=== PATIENT | female | born 1990 | race Caucasian/White ===

== ENCOUNTER 2018-05-29 18:11 | Outpatient (CLI) | payer OTHER ==
[~2018-05-29] VITALS: Ht 172.7 cm; Wt 75.0 kg
[2018-05-29 18:19] VITALS: BP 131/76
== END 2018-05-29 22:00 | disposition home or self-care (01) ==
LOC: LDOP 18:11
PROVIDERS: ATTEND Obstetrics & Gynecology Gynecology
DX: O42.913 Preterm premature rupture of membranes, unspecified as to length of time between rupture and onset of labor, third trimester (principal); Z3A.30 30 weeks gestation of pregnancy
CPT/HCPCS: 59025; 84112; 99201; G0463

== ENCOUNTER 2018-07-26 05:24 | Inpatient (IN) | payer OTHER ==
[~2018-07-26] VITALS: Ht 172.7 cm; Wt 79.5 kg
[2018-07-26] MEDS ORDERED: LACTATED RINGERS 1,000 ML IV SCH ×2 (05:27→05:30)
[2018-07-26] MEDS ORDERED: OXYTOCIN 30U/ 0.9% NaCL 500ML 500 ML IV SCH (05:27)
[2018-07-26] MEDS ORDERED: SODIUM CITRATE/CITRIC ACID 30 ML UDC PO ONE (05:30)
[2018-07-26] MEDS ORDERED: LACTATED RINGERS 1,000 ML IVBOLUS ONE (05:30)
[2018-07-26] MEDS ORDERED: METOCLOPRAMIDE 5 MG/ML, 2ML IV ONE (05:30)
[2018-07-26 05:36] VITALS: BP 123/85
[2018-07-26] MEDS ORDERED: PREN-3 PO (05:41)
[2018-07-26] MEDS ORDERED: NEWBORN KIT ONE (06:10)
[2018-07-26] MEDS ORDERED: SODIUM CITRATE/CITRIC ACID 30 ML UDC ONE (06:10)
[2018-07-26] MEDS ORDERED: OXYTOCIN 30U/ 0.9% NaCL 500ML 500 ML ONE (06:10)
[2018-07-26] MEDS ORDERED: METOCLOPRAMIDE 5 MG/ML, 2ML ONE (06:10)
[2018-07-26 06:11] LABS: BASOPHILS # (AUTO) 0.04 x10^3/uL (0-0.1); BASOPHILS % (AUTO) 0 % (0-1); EOSINOPHILS # (AUTO) 0.21 x10^3/uL (0-0.4); EOSINOPHILS % (AUTO) 2 % (1-7); LYMPHOCYTES # (AUTO) 2.91 x10^3/uL (1-3.4); LYMPHOCYTES % (AUTO) 33 % (22-44); MD NO; MEAN CORPUSCULAR HEMOGLOBIN 26.3 pg (27.0-34.8); MEAN CORPUSCULAR HGB CONC 33.3 g/dL (32.4-35.8); MEAN CORPUSCULAR VOLUME 79.1 fL (80-100); MEAN PLATELET VOLUME 8.6 fL (7.4-10.4); MONOCYTES # (AUTO) 0.63 x10^3/uL (0.2-0.8); MONOCYTES % (AUTO) 7 % (2-9); NEUTROPHILS # (AUTO) 4.93 x10^3/uL (1.8-6.8); NEUTROPHILS % (AUTO) 57 % (42-75); PLATELET COUNT 238 x10^3/uL (130-400); RED BLOOD COUNT 4.56 x10^6/uL (3.82-5.3); RED CELL DISTRIBUTION WIDTH 14.1 % (9.6-15.2)
[2018-07-26] MEDS ORDERED: OXYcodone 5 MG/5 ML ORAL.SOL UDC PO PRN (07:30)
[2018-07-26] MEDS ORDERED: EPHEDRINE 50 MG/ML, 1ML IVPush PRN (07:30)
[2018-07-26] MEDS ORDERED: MEPERIDINE/PF 25MG/0.5ML IVPush PRN (07:30)
[2018-07-26] MEDS ORDERED: ONDANSETRON 2MG/ML, 2ML IV PRN ×2 (07:30→08:00)
[2018-07-26] MEDS ORDERED: ONDANSETRON ODT 8 MG PO PRN (07:30)
[2018-07-26] MEDS ORDERED: FENTANYL PF 100 MCG/2ML IV PRN (07:30)
[2018-07-26] MEDS ORDERED: LIDOCAINE 1%, 20ML ONE (07:35)
[2018-07-26] MEDS: LACTATED RINGERS 1,000 ML IV SCH ×5 (07:44→23:44)
[2018-07-26] MEDS: OXYTOCIN 30U/ 0.9% NaCL 500ML 500 ML IV SCH ×2 (07:44→17:44)
[2018-07-26] MEDS ORDERED: EPHEDRINE 50 MG/ML, 1ML ONE (07:59)
[2018-07-26] MEDS ORDERED: EPINEPHRINE 1 MG/ML, 1ML ONE (07:59)
[2018-07-26] MEDS ORDERED: CEFAZOLIN 1,000 MG ONE (07:59)
[2018-07-26] MEDS ORDERED: OXYTOCIN 10 UNITS/ML, 1ML ONE (07:59)
[2018-07-26] MEDS ORDERED: morphine SULFATE 10 MG/ML, 1ML IVPush PRN (08:00)
[2018-07-26] MEDS ORDERED: RHOGAM FROM BLOOD BANK 1 NOTE EA IM/IV ONE (08:00)
[2018-07-26] MEDS ORDERED: MISOPROSTOL 200 MCG TABLET PR PRN (08:00)
[2018-07-26] MEDS ORDERED: CALCIUM CARBONATE 500 MG TAB.CHEW PO PRN (08:00)
[2018-07-26] MEDS ORDERED: DIPH,PERTUSS(ACELL),TET VAC/PF NC IM-VACC PRN (08:00)
[2018-07-26] MEDS ORDERED: OXYcodone IR 5MG TABLET PO PRN (08:00)
[2018-07-26] MEDS ORDERED: MEASLES,MUMPS&RUBELLA VACC/PF 0.5 ML SQ-VACC PRN (08:00)
[2018-07-26] MEDS ORDERED: IBUPROFEN 600 MG TABLET PO PRN (08:00)
[2018-07-26] MEDS ORDERED: SIMETHICONE 80 MG CHEW TAB PO PRN (08:00)
[2018-07-26] MEDS: KETOROLAC 30 MG/1 ML IV SCH ×3 (08:15→20:08)
[2018-07-26] MEDS: PRENATAL VIT/IRON/FA 1 EACH TABLET PO SCH (09:00)
[2018-07-26] MEDS ORDERED: morphine SULFATE 10 MG/ML, 1ML ONE (10:52)
[2018-07-26 11:05] VITALS: BP 118/70
[2018-07-26 15:30] VITALS: BP 132/79
[2018-07-26] MEDS: OXYcodone/APAP 5/325MG TABLET PO PRN ×2 (15:59→20:08)
[2018-07-26 16:14] LABS: BASOPHILS # (AUTO) 0.03 x10^3/uL (0-0.1); BASOPHILS % (AUTO) 0 % (0-1); EOSINOPHILS # (AUTO) 0.13 x10^3/uL (0-0.4); EOSINOPHILS % (AUTO) 1 % (1-7); LYMPHOCYTES # (AUTO) 2.42 x10^3/uL (1-3.4); LYMPHOCYTES % (AUTO) 21 % (22-44); MD NO; MEAN CORPUSCULAR HEMOGLOBIN 26.3 pg (27.0-34.8); MEAN CORPUSCULAR HGB CONC 32.9 g/dL (32.4-35.8); MEAN CORPUSCULAR VOLUME 80.1 fL (80-100); MEAN PLATELET VOLUME 8.7 fL (7.4-10.4); MONOCYTES # (AUTO) 0.59 x10^3/uL (0.2-0.8); MONOCYTES % (AUTO) 5 % (2-9); NEUTROPHILS # (AUTO) 8.48 x10^3/uL (1.8-6.8); NEUTROPHILS % (AUTO) 73 % (42-75); PLATELET COUNT 215 x10^3/uL (130-400); RED BLOOD COUNT 4.61 x10^6/uL (3.82-5.3); RED CELL DISTRIBUTION WIDTH 14.3 % (9.6-15.2)
[2018-07-26 19:30] VITALS: BP 106/72
[2018-07-26] MEDS ORDERED: DOCUSATE 50 MG/5 ML, 10ML UDC PO PRN (21:00)
[2018-07-26] MEDS ORDERED: DOCUSATE 100 MG CAPSULE ONE (21:07)
[2018-07-27] VITALS: BP 116/79
[2018-07-27] MEDS: DOCUSATE 100 MG CAPSULE PO PRN ×3 (00:06→20:22)
[2018-07-27] MEDS: KETOROLAC 30 MG/1 ML IV SCH ×4 (02:00→21:51)
[2018-07-27] MEDS: OXYcodone/APAP 5/325MG TABLET PO PRN ×4 (02:00→20:22)
[2018-07-27] MEDS: OXYTOCIN 30U/ 0.9% NaCL 500ML 500 ML IV SCH ×3 (03:44→23:44)
[2018-07-27] MEDS: LACTATED RINGERS 1,000 ML IV SCH ×6 (03:44→23:44)
[2018-07-27 04:16] VITALS: BP 107/75
[2018-07-27] MEDS: PRENATAL VIT/IRON/FA 1 EACH TABLET PO SCH (07:45)
[2018-07-27 08:31] VITALS: BP 109/75
[2018-07-27 19:45] VITALS: BP 120/81
[2018-07-28] MEDS: KETOROLAC 30 MG/1 ML IV SCH (03:56)
[2018-07-28 06:50] VITALS: BP 113/72
[2018-07-28] MEDS: LACTATED RINGERS 1,000 ML IV SCH ×2 (07:44→09:44)
[2018-07-28] MEDS: DOCUSATE 100 MG CAPSULE PO PRN (08:26)
[2018-07-28] MEDS: PRENATAL VIT/IRON/FA 1 EACH TABLET PO SCH (08:28)
[2018-07-28] MEDS: OXYTOCIN 30U/ 0.9% NaCL 500ML 500 ML IV SCH (09:44)
[2018-07-28] MEDS: OXYcodone/APAP 5/325MG TABLET PO PRN (10:28)
[2018-07-28] MEDS ORDERED: OXYC-302 PO (10:31)
[2018-07-28] MEDS ORDERED: IBUP-1222 PO (10:31)
== END 2018-07-28 11:45 | disposition home or self-care (01) | DRG 766 ==
LOC: LDIP 05:24 → 2NW 11:00
PROVIDERS: ADMIT Obstetrics & Gynecology Gynecology; ATTEND Obstetrics & Gynecology Gynecology
PROC: 10D00Z1 Extraction of Products of Conception, Low, Open Approach (ICD-10-PCS; principal; 2018-07-26)
DX: O34.211 Maternal care for low transverse scar from previous cesarean delivery (principal); O34.13 Maternal care for benign tumor of corpus uteri, third trimester; D25.9 Leiomyoma of uterus, unspecified; Z37.0 Single live birth; Z3A.39 39 weeks gestation of pregnancy; Z90.710 Acquired absence of both cervix and uterus; Z88.0 Allergy status to penicillin
CPT/HCPCS: 36415; 82803; 85025; 86850; 86900; G0378; J0171; J0690; J1885; J3490; J2270; J2590; J2765; J7120